=== PATIENT | female | born 1945 | race Asian ===

== ENCOUNTER → 2020-02-18 | Outpatient (CLI) | payer OTHER ==
[~2020-02-18] MED LIST: ALPR0.5T7 PO; AMLO-150 PO; AMLO2.5T2 PO; ASCO10004 PO; ASPI-515 PO; Allertec PO; CALC-451 PO; CHLO25TA PO; CHOL200024 PO; CLON0.1T22 PO; LEVO112T2 PO; LISI-170 PO; LOSA50TA14 PO; MELO7.5T31 PO; METF500T17 PO; MULT-717 PO; OXYC-302 PO; PANT40GR PO; POTA20TA6 PO; SIMV20TA19 PO; SIMVISTATIN PO
[2020-02-18 13:40] LABS: BASOPHILS # (AUTO) 0.04 x10^3/uL (0-0.1); BASOPHILS % (AUTO) 1 % (0-1); EOSINOPHILS # (AUTO) 0.17 x10^3/uL (0-0.4); EOSINOPHILS % (AUTO) 3 % (1-7); LYMPHOCYTES % (AUTO) 32 % (22-44); MD NO; MEAN CORPUSCULAR HEMOGLOBIN 29.5 pg (27.0-34.8); MEAN CORPUSCULAR HGB CONC 33.1 g/dL (32.4-35.8); MEAN CORPUSCULAR VOLUME 89.1 fL (80-100); MEAN PLATELET VOLUME 6.4 fL (7.4-10.4); MONOCYTES # (AUTO) 0.47 x10^3/uL (0.2-0.8); MONOCYTES % (AUTO) 8 % (2-9); NEUTROPHILS # (AUTO) 3.51 x10^3/uL (1.8-6.8); NEUTROPHILS % (AUTO) 57 % (42-75); PLATELET COUNT 280 x10^3/uL (130-400)
[2020-02-18 13:49] LABS: ALBUMIN 3.2 g/dL (3.4-5.0); ANION GAP 5 mmol/L (5-15); C-REACTIVE PROTEIN, QUANT 0.04 mg/dL (0.02-0.49); CALCIUM 7.5 mg/dL (8.5-10.1); CHLORIDE 110 mmol/L (98-107)
[2020-02-18 14:02] LABS: ALANINE AMINOTRANSFERASE 18 U/L (12-78); ALKALINE PHOSPHATASE 72 U/L (45-117); BILIRUBIN,TOTAL 0.3 mg/dL (0.2-1.0); CREATININE 0.86 mg/dL (0.55-1.02); TOTAL PROTEIN 6.9 g/dL (6.4-8.2)
== END | disposition home or self-care (01) ==
LOC: RAD 13:15
PROVIDERS: ATTEND Family Medicine
DX: R07.89 Other chest pain (principal); R06.02 Shortness of breath; M12.9 Arthropathy, unspecified; I51.7 Cardiomegaly
CPT/HCPCS: 36415; 71046; 80053; 83880; 85025; 86140

== ENCOUNTER → 2020-03-05 | Outpatient (CLI) | payer OTHER | END | disposition home or self-care (01) | LOC: CFH 12:37 | PROVIDERS: ATTEND Family Medicine | DX: J18.9 Pneumonia, unspecified organism (principal) | CPT/HCPCS: 71046 ==

== ENCOUNTER → 2020-04-09 | Outpatient (CLI) | payer OTHER ==
[~2020-04-09] MED LIST changes: +ASCO100018 PO; -ASCO10004 PO
== END | disposition home or self-care (01) ==
LOC: CFH 10:57
PROVIDERS: ATTEND Family Medicine
DX: R10.9 Unspecified abdominal pain (principal)
CPT/HCPCS: 76705

== ENCOUNTER → 2020-05-28 | Outpatient (CLI) | payer OTHER ==
[~2020-05-28] MED LIST changes: +GABA-826 PO; +HYDROCHLOROTH12.5 MG PO; +LEVO75TA5 PO; +LORA10TA75 PO; +VITAMIN B12 PO
[2020-05-28 11:10] LABS: BASOPHILS % (AUTO) 1 % (0-1); EOSINOPHILS % (AUTO) 1 % (1-7); LYMPHOCYTES % (AUTO) 20 % (22-44); MEAN CORPUSCULAR HEMOGLOBIN 29.9 pg (27.0-34.8); MEAN CORPUSCULAR HGB CONC 33.3 g/dL (32.4-35.8); MEAN PLATELET VOLUME 6.8 fL (7.4-10.4); MONOCYTES % (AUTO) 10 % (2-9); NEUTROPHILS % (AUTO) 69 % (42-75); PLATELET COUNT 243 x10^3/uL (130-400); RED BLOOD COUNT 4.89 x10^6/uL (3.82-5.3); RED CELL DISTRIBUTION WIDTH 14.8 % (9.6-15.2)
[2020-05-28 11:13] LABS: MD NO
[2020-05-28 11:23] LABS: ALANINE AMINOTRANSFERASE 26 U/L (12-78); ALBUMIN 3.3 g/dL (3.4-5.0); ALKALINE PHOSPHATASE 78 U/L (45-117); ANION GAP 7 mmol/L (5-15); BILIRUBIN,TOTAL 0.5 mg/dL (0.2-1.0); CALCIUM 8.7 mg/dL (8.5-10.1); CHLORIDE 102 mmol/L (98-107); CREATININE 0.88 mg/dL (0.55-1.02); TOTAL PROTEIN 7.7 g/dL (6.4-8.2)
[2020-05-28 11:58] LABS: MICROSCOPIC AUTO
== END | disposition home or self-care (01) ==
LOC: STAR 09:30
PROVIDERS: ATTEND Obstetrics & Gynecology
DX: Z01.812 Encounter for preprocedural laboratory examination (principal); Z20.828 Contact with and (suspected) exposure to other viral communicable diseases; R94.31 Abnormal electrocardiogram [ECG] [EKG]; N81.4 Uterovaginal prolapse, unspecified
CPT/HCPCS: 36415; 80053; 81001; 85025; 87086; 87635; 93005

== ENCOUNTER 2020-06-02 09:38 | Day surgery (SDC) | payer OTHER ==
[~2020-06-02] VITALS: Ht 142.2 cm; Wt 65.0 kg
[2020-06-02] MEDS ORDERED: CHLORHEXIDINE 15 ML UDC MM STA (09:49)
[2020-06-02] MEDS ORDERED: CHLORHEXIDINE 15 ML UDC ONE (09:57)
[2020-06-02] MEDS ORDERED: LACTATED RINGERS 1,000 ML IV SCH ×2 (10:00→15:00)
[2020-06-02] MEDS ORDERED: PLEASE ENTER HEIGHT AND WEIGHT MC SCH (10:00)
[2020-06-02] MEDS ORDERED: CEFAZOLIN 1,000 MG ONE (10:44)
[2020-06-02] MEDS ORDERED: FLUORESCEIN SODIUM 500 MG/5 ML ONE (11:12)
[2020-06-02] MEDS ORDERED: EPINEPHRINE 1 MG/ML, 1ML ONE (11:12)
[2020-06-02] MEDS ORDERED: BUPIVACAINE/PF 0.25% ONE (11:12)
[2020-06-02] MEDS ORDERED: METHOCARBAMOL 1,000 MG in DEXTROSE 5% 100 ML IV PRN (11:30)
[2020-06-02] MEDS ORDERED: OXYcodone 5 MG/5 ML ORAL.SOL UDC PO PRN (11:30)
[2020-06-02] MEDS ORDERED: FENTANYL PF 100 MCG/2ML IV PRN (11:30)
[2020-06-02] MEDS ORDERED: LORazepam 2 MG/ML, 1ML IVPush PRN (11:30)
[2020-06-02] MEDS ORDERED: DIAZEPAM 5 MG/ML, 2ML IVPush PRN (11:30)
[2020-06-02] MEDS ORDERED: hydrALAzine 20 MG/ML, 1ML IV PRN (11:30)
[2020-06-02] MEDS ORDERED: MIDAZOLAM 1 MG/ML, 2ML IV PRN (11:30)
[2020-06-02] MEDS ORDERED: MEPERIDINE/PF 25MG/0.5ML IVPush PRN (11:30)
[2020-06-02] MEDS ORDERED: EPHEDRINE 50 MG/ML, 1ML IVPush PRN (11:30)
[2020-06-02] MEDS ORDERED: HALOPERIDOL 5 MG/ML IV PRN (11:30)
[2020-06-02] MEDS ORDERED: EPHEDRINE 50 MG/ML, 1ML IM PRN (11:30)
[2020-06-02] MEDS ORDERED: ONDANSETRON 2MG/ML, 2ML IVPush PRN ×2 (11:30→15:00)
[2020-06-02] MEDS ORDERED: HYDROmorphone 1 MG/ML, 1ML INJ IVPush PRN (11:30)
[2020-06-02] MEDS ORDERED: LABETALOL 5MG/ML, 20ML IV PRN (11:30)
[2020-06-02] MEDS ORDERED: ACETAMINOPHEN 325 MG TABLET PO PRN (11:30)
[2020-06-02] MEDS ORDERED: ALBUTEROL/IPRATROPIUM 2.5MG/0.5MG, 3 ML NPPB PRN (11:30)
[2020-06-02] MEDS ORDERED: DIPHENHYDRAMINE 50 MG/ML, 1ML IM PRN (11:30)
[2020-06-02] MEDS ORDERED: METOCLOPRAMIDE 5 MG/ML, 2ML IVPush PRN (11:30)
[2020-06-02] MEDS ORDERED: HYDROcodone/APAP 7.5-325MG/15ML UDC PO PRN (11:30)
[2020-06-02] MEDS ORDERED: LIDOCAINE-MPF 2% ,5ML ONE (11:35)
[2020-06-02] MEDS ORDERED: ROCURONIUM 10MG/ML,5ML ONE (11:35)
[2020-06-02] MEDS ORDERED: FENTANYL PF 250 MCG/5ML ONE (11:35)
[2020-06-02] MEDS ORDERED: PROPOFOL 10 MG/ML, 20ML ONE (11:35)
[2020-06-02] MEDS ORDERED: DEXAMETHASONE 4 MG/ML, 1ML ONE (11:35)
[2020-06-02] MEDS ORDERED: MIDAZOLAM 1 MG/ML, 2ML ONE (11:35)
[2020-06-02] MEDS ORDERED: GLYCOPYRROLATE 0.2MG/1ML, 5ML ONE (11:35)
[2020-06-02] MEDS ORDERED: OXYcodone 5 MG/5 ML ORAL.SOL UDC ONE (14:59)
[2020-06-02] MEDS ORDERED: morphine SULFATE 10 MG/ML, 1ML IVPush PRN (15:00)
[2020-06-02] MEDS ORDERED: KETOROLAC 30 MG/1 ML IVPush PRN (15:00)
[2020-06-02] MEDS ORDERED: OXYcodone/APAP 5/325MG TABLET PO PRN (15:00)
[2020-06-02] MEDS ORDERED: MEPERIDINE/PF 25MG/ML,1ML ONE (15:02)
[2020-06-02] MEDS ORDERED: IBUPROFEN 600 MG TABLET PO SCH (16:00)
== END 2020-06-02 19:00 | disposition home or self-care (01) ==
LOC: OUT 09:38
PROVIDERS: ATTEND Obstetrics & Gynecology
DX: N81.4 Uterovaginal prolapse, unspecified (principal); N95.0 Postmenopausal bleeding; D25.1 Intramural leiomyoma of uterus; N72 Inflammatory disease of cervix uteri; R32 Unspecified urinary incontinence; I10 Essential (primary) hypertension; E03.9 Hypothyroidism, unspecified; K21.9 Gastro-esophageal reflux disease without esophagitis; F41.9 Anxiety disorder, unspecified; E66.3 Overweight; Z68.34 Body mass index [BMI] 34.0-34.9, adult; Z79.890 Hormone replacement therapy; Z79.899 Other long term (current) drug therapy
CPT/HCPCS: 58552; 88307; J0171; J0690; J1100; J2175; J2250; J2704; J2800; J3010; J7120

== ENCOUNTER → 2020-10-15 | Outpatient (CLI) | payer OTHER ==
[~2020-10-15] MED LIST changes: -ASPI-515 PO; +ASPI-963 PO; -OXYC-302 PO; +OXYC1TAB14 PO
== END | disposition home or self-care (01) ==
LOC: RAD 15:12
PROVIDERS: ATTEND Family Medicine
DX: S33.39XA Dislocation of other parts of lumbar spine and pelvis, initial encounter (principal); I51.7 Cardiomegaly; M48.061 Spinal stenosis, lumbar region without neurogenic claudication; M25.78 Osteophyte, vertebrae; X58.XXXA Exposure to other specified factors, initial encounter; Y93.89 Activity, other specified; Y92.89 Other specified places as the place of occurrence of the external cause; Y99.8 Other external cause status
CPT/HCPCS: 71046; 72110

== ENCOUNTER 2020-10-19 11:25 | Emergency (ER) | payer OTHER ==
[~2020-10-19] VITALS: Ht 134.6 cm; Wt 67.0 kg
[~2020-10-19 11:25] MED LIST changes: +OXYC1TAB12 PO; -OXYC1TAB14 PO; +POTA-143 PO; -POTA20TA6 PO
--- NOTE | 2020-10-19 11:40 | NUR ---
PT IN BATHROOM.
--- NOTE | 2020-10-19 11:45 | NUR ---
PT PRESENTED TO ED D/T EXERTIONAL DYSPNEA. STATES SOB HAS BEEN GOING ON FOR "1 YEAR" BUT IS GETTING WORSE. SOB NOTED WITH MOVEMENT.
[2020-10-19] MEDS ORDERED: AMLO-150 PO (11:49)
--- NOTE | 2020-10-19 11:53 | NUR ---
LAB AT BEDSIDE.
[2020-10-19] MEDS ORDERED: SODIUM CHLORIDE FLUSH 10ML SYR IVF ONE (12:00)
[2020-10-19 12:13] LABS: BASOPHILS % (AUTO) 1 % (0-1); EOSINOPHILS % (AUTO) 2 % (1-7); LYMPHOCYTES % (AUTO) 29 % (22-44); MEAN CORPUSCULAR HEMOGLOBIN 29.6 pg (27.0-34.8); MEAN CORPUSCULAR HGB CONC 33.6 g/dL (32.4-35.8); MEAN PLATELET VOLUME 6.2 fL (7.4-10.4); MONOCYTES % (AUTO) 8 % (2-9); NEUTROPHILS % (AUTO) 60 % (42-75); PLATELET COUNT 368 x10^3/uL (130-400); RED BLOOD COUNT 4.68 x10^6/uL (3.82-5.3); RED CELL DISTRIBUTION WIDTH 14.4 % (9.6-15.2)
[2020-10-19 12:21] LABS: ALBUMIN 3.6 g/dL (3.4-5.0); ANION GAP 7 mmol/L (5-15); CALCIUM 8.9 mg/dL (8.5-10.1); CHLORIDE 103 mmol/L (98-107); CREATININE 0.74 mg/dL (0.55-1.02)
[2020-10-19 12:24] LABS: TROPONIN I < 0.015 ng/mL (0.000-0.045)
--- NOTE | 2020-10-19 12:38 | NUR ---
PIV OBTAINED. 20 R AC. AWAITING CTA.
--- NOTE | 2020-10-19 12:39 | NUR ---
CT DELAY; ONE ROOM CODE NEURO PATIENT; OTHER ROOM COVID PATIENT
--- NOTE | 2020-10-19 13:10 | NUR ---
PT AMBULATED TO RADIOLOGY.
--- NOTE | 2020-10-19 14:07 | NUR ---
BREAK RN: PT IN CT
[2020-10-19] MEDS ORDERED: OMNIPAQUE 350 MG/ML, 75ML BOTTLE ONE (14:17)
--- NOTE | 2020-10-19 14:35 | NUR ---
RN ANSWERED PT'S CALL LIGHT. PT NEEDING TO VOID. PT AMBULATED TO RESTROOM WITH RN WITH A STEADY GAIT.
--- NOTE | 2020-10-19 15:04 | NUR ---
PT DC HOME IN A STABLE CONDITION. PIV REMOVED WITH TIP INTACT. DC INSTRUCTIONS DISCUSSED WITH PT. PT VERBALIZED UNDERSTANDING. NO FURTHER QUESTIONS OR CONCERNS EXPRESSED. PT GETTING SELF DRESSED. RN TO AMBULATE WITH PT TO DC DESK.
[2020-10-19 15:05] VITALS: BP 135/70
== END 2020-10-19 15:07 | disposition home or self-care (01) ==
LOC: ED 13:00
DX: R06.00 Dyspnea, unspecified (principal); R94.31 Abnormal electrocardiogram [ECG] [EKG]; I10 Essential (primary) hypertension; E03.9 Hypothyroidism, unspecified
CPT/HCPCS: 36415; 71045; 71275; 80048; 82040; 83605; 84484; 85025; 87040; 93005; 99285; Q9967

== ENCOUNTER 2020-10-20 14:34 | Outpatient (CLI) | payer OTHER ==
[~2020-10-20 14:34] MED LIST changes: -OXYC1TAB12 PO; +OXYC1TAB14 PO; -POTA-143 PO; +POTA20TA6 PO
== END 2020-10-20 23:59 | disposition home or self-care (01) ==
LOC: CFH 14:34
PROVIDERS: ATTEND Family Medicine
DX: Z02.9 Encounter for administrative examinations, unspecified (principal)

== ENCOUNTER → 2020-10-27 | Outpatient (CLI) | payer OTHER | END | disposition home or self-care (01) | LOC: RAD 12:07 | PROVIDERS: ATTEND Family Medicine | DX: M51.36 Other intervertebral disc degeneration, lumbar region (principal) | CPT/HCPCS: 72110 ==